=== PATIENT | male | born 1965 | race Caucasian/White ===

== ENCOUNTER 2017-08-20 01:15 | Emergency (ER) | payer MEDICAID ==
[~2017-08-20] VITALS: Ht 172.7 cm; Wt 99.7 kg
[2017-08-20] MEDS ORDERED: ALBUTEROL/IPRATROPIUM 2.5MG/0.5MG, 3 ML ONE (01:45)
[2017-08-20] MEDS ORDERED: ALBUTEROL/IPRATROPIUM 2.5MG/0.5MG, 3 ML NPPB ONE (02:00)
[2017-08-20 03:08] VITALS: BP 124/70
== END 2017-08-20 03:10 | disposition home or self-care (01) ==
LOC: ED 02:52
DX: S20.219A Contusion of unspecified front wall of thorax, initial encounter (principal); I10 Essential (primary) hypertension; X58.XXXA Exposure to other specified factors, initial encounter; Y93.89 Activity, other specified; Y92.89 Other specified places as the place of occurrence of the external cause; Y99.8 Other external cause status
CPT/HCPCS: 71046; 94640; 99284; J7620

== ENCOUNTER 2017-10-13 00:36 | Emergency (ER) | payer MEDICAID ==
[~2017-10-13] VITALS: Ht 172.7 cm; Wt 91.1 kg
[2017-10-13 00:38] VITALS: BP 156/104
[2017-10-13] MEDS ORDERED: IBUPROFEN 800 MG TABLET PO STA (01:11)
[2017-10-13] MEDS ORDERED: HYDROcodone/APAP 5/325 TABLET PO STA (01:11)
[2017-10-13] MEDS ORDERED: HYDROcodone/APAP 5/325 TABLET ONE (01:18)
[2017-10-13] MEDS ORDERED: IBUPROFEN 200 MG TABLET ONE (01:18)
== END 2017-10-13 02:27 | disposition home or self-care (01) ==
LOC: ED 02:00
DX: M54.42 Lumbago with sciatica, left side (principal); I10 Essential (primary) hypertension; F17.200 Nicotine dependence, unspecified, uncomplicated
CPT/HCPCS: 99284; J7512

== ENCOUNTER 2017-10-17 01:09 | Emergency (ER) | payer MEDICAID ==
[~2017-10-17] VITALS: Ht 175.3 cm; Wt 89.6 kg
[2017-10-17 01:11] VITALS: BP 126/90
== END 2017-10-17 03:10 | disposition home or self-care (01) ==
LOC: ED 03:04
DX: S39.012A Strain of muscle, fascia and tendon of lower back, initial encounter (principal); M54.42 Lumbago with sciatica, left side; M54.41 Lumbago with sciatica, right side; I10 Essential (primary) hypertension; X58.XXXA Exposure to other specified factors, initial encounter; Y93.89 Activity, other specified; Y92.89 Other specified places as the place of occurrence of the external cause; Y99.9 Unspecified external cause status
CPT/HCPCS: 72110; 99284

== ENCOUNTER 2017-12-22 11:21 | Emergency (ER) | payer MEDICAID ==
[~2017-12-22] VITALS: Ht 182.9 cm; Wt 95.5 kg
[2017-12-22 12:01] LABS: BASOPHILS # (AUTO) 0.02 x10^3/uL (0-0.1); BASOPHILS % (AUTO) 0 % (0-1); EOSINOPHILS # (AUTO) 0.13 x10^3/uL (0-0.4); EOSINOPHILS % (AUTO) 2 % (1-7); LYMPHOCYTES # (AUTO) 1.52 x10^3/uL (1-3.4); LYMPHOCYTES % (AUTO) 21 % (22-44); MD NO; MEAN CORPUSCULAR HEMOGLOBIN 30.6 pg (27.5-34.5); MEAN CORPUSCULAR HGB CONC 33.6 g/dL (33.2-36.2); MEAN CORPUSCULAR VOLUME 91.1 fL (81-97); MEAN PLATELET VOLUME 7.7 fL (7.4-10.4); MONOCYTES # (AUTO) 0.61 x10^3/uL (0.2-0.8); MONOCYTES % (AUTO) 8 % (2-9); NEUTROPHILS # (AUTO) 5.05 x10^3/uL (1.8-6.8); NEUTROPHILS % (AUTO) 69 % (42-75); PLATELET COUNT 240 x10^3/uL (130-400); RED BLOOD COUNT 4.62 x10^6/uL (4.38-5.82)
[2017-12-22 12:19] LABS: ALBUMIN 3.3 g/dL (3.4-5.0); ANION GAP 7 mmol/L (5-15); CALCIUM 8.7 mg/dL (8.5-10.1); CHLORIDE 107 mmol/L (98-107)
[2017-12-22 12:22] LABS: ALANINE AMINOTRANSFERASE 23 U/L (12-78); ALKALINE PHOSPHATASE 70 U/L (45-117); BILIRUBIN,TOTAL 0.5 mg/dL (0.2-1.0); CREATININE 0.81 mg/dL (0.7-1.3)
[2017-12-22 12:23] LABS: MICROSCOPIC AUTO
[2017-12-22 12:27] LABS: CULTURE INDICATED? NO
[2017-12-22 13:08] VITALS: BP 118/78
== END 2017-12-22 14:00 | disposition home or self-care (01) ==
LOC: ED 12:31
DX: R53.1 Weakness (principal); I10 Essential (primary) hypertension; J45.909 Unspecified asthma, uncomplicated
CPT/HCPCS: 36415; 70450; 71045; 80053; 81001; 83605; 85025; 93005; 99285

== ENCOUNTER 2018-07-28 14:24 | Inpatient (IN) | payer MEDICAID, OTHER ==
[~2018-07-28] VITALS: Ht 175.3 cm; Wt 81.6 kg
--- NOTE | 2018-07-28 14:42 | NUR ---
Pt to room from lobby.
[2018-07-28 14:53] LABS: BASOPHILS # (AUTO) 0.08 x10^3/uL (0-0.1); BASOPHILS % (AUTO) 1 % (0-1); EOSINOPHILS # (AUTO) 0.13 x10^3/uL (0-0.4); EOSINOPHILS % (AUTO) 1 % (1-7); LYMPHOCYTES # (AUTO) 1.39 x10^3/uL (1-3.4); LYMPHOCYTES % (AUTO) 12 % (22-44); MD NO; MEAN CORPUSCULAR HEMOGLOBIN 30.3 pg (27.5-34.5); MEAN CORPUSCULAR HGB CONC 33.8 g/dL (33.2-36.2); MEAN CORPUSCULAR VOLUME 89.7 fL (81-97); MEAN PLATELET VOLUME 7.4 fL (7.4-10.4); MONOCYTES # (AUTO) 0.72 x10^3/uL (0.2-0.8); MONOCYTES % (AUTO) 6 % (2-9); NEUTROPHILS % (AUTO) 80 % (42-75); PLATELET COUNT 364 x10^3/uL (130-400); RED BLOOD COUNT 4.22 x10^6/uL (4.38-5.82); RED CELL DISTRIBUTION WIDTH 13.1 % (9.4-14.8)
[2018-07-28] MEDS ORDERED: AMPICILLIN/SULBACTAM 3 GM in SODIUM CHLORIDE 0.9% 100 ML IV ONE (15:00)
[2018-07-28 15:05] LABS: ALBUMIN 2.3 g/dL (3.4-5.0); ANION GAP 0 mmol/L (5-15); CALCIUM 8.7 mg/dL (8.5-10.1); CHLORIDE 105 mmol/L (98-107); CREATININE 0.71 mg/dL (0.7-1.3)
--- NOTE | 2018-07-28 15:14 | NUR ---
Pt presents for swelling to R foot and leg x several days. Pt states he tripped af ew days ago and that is when he first noticed the swelling. CSM intact. No SOB.
[2018-07-28] MEDS ORDERED: ENALAPRILAT 1.25 MG/ML, 2ML IVPush PRN (15:30)
[2018-07-28] MEDS ORDERED: ACETAMINOPHEN 325 MG TABLET PO PRN (15:30)
[2018-07-28] MEDS ORDERED: BISACODYL 10 MG SUPP PR PRN (15:30)
[2018-07-28] MEDS ORDERED: DOCUSATE 100 MG CAPSULE PO PRN (15:30)
[2018-07-28] MEDS ORDERED: VANCOMYCIN PER PHARMACY MC PRN (15:30)
[2018-07-28] MEDS ORDERED: ONDANSETRON 2MG/ML, 2ML IVPush PRN (15:30)
[2018-07-28] MEDS ORDERED: KETOROLAC 30 MG/1 ML IV PRN (15:30)
[2018-07-28] MEDS ORDERED: POLYETHYLENE GLYCOL 17 GM PACKET PO PRN (15:30)
[2018-07-28] MEDS ORDERED: PHARMACOKINETIC MONITORING MC PRN (17:00)
[2018-07-28] MEDS ORDERED: PHARMACOKINETIC CONSULTATION MC ONE (17:00)
[2018-07-28 18:30] VITALS: BP 119/73
[2018-07-28] MEDS: ENOXAPARIN 40 MG/0.4 ML SQ SCH (18:37)
[2018-07-28] MEDS: VANCOMYCIN 1,700 MG in SODIUM CHLORIDE 0.9% 250 ML IV SCH (22:20)
[2018-07-28] MEDS: SODIUM CHLORIDE FLUSH 10ML SYR IVF SCH (22:21)
[2018-07-29] MEDS: AMPICILLIN/SULBACTAM 3 GM in SODIUM CHLORIDE 0.9% 100 ML IV SCH ×4 (00:20→20:40)
[2018-07-29 01:00] VITALS: BP 112/72
[2018-07-29 05:00] LABS: BASOPHILS # (AUTO) 0.03 x10^3/uL (0-0.1); BASOPHILS % (AUTO) 0 % (0-1); EOSINOPHILS # (AUTO) 0.27 x10^3/uL (0-0.4); EOSINOPHILS % (AUTO) 3 % (1-7); LYMPHOCYTES # (AUTO) 1.36 x10^3/uL (1-3.4); LYMPHOCYTES % (AUTO) 13 % (22-44); MD NO; MEAN CORPUSCULAR HEMOGLOBIN 30.4 pg (27.5-34.5); MEAN CORPUSCULAR HGB CONC 33.7 g/dL (33.2-36.2); MEAN CORPUSCULAR VOLUME 90.1 fL (81-97); MEAN PLATELET VOLUME 7.4 fL (7.4-10.4); MONOCYTES # (AUTO) 0.76 x10^3/uL (0.2-0.8); MONOCYTES % (AUTO) 7 % (2-9); NEUTROPHILS # (AUTO) 8.29 x10^3/uL (1.8-6.8); NEUTROPHILS % (AUTO) 77 % (42-75); PLATELET COUNT 361 x10^3/uL (130-400); RED BLOOD COUNT 4.14 x10^6/uL (4.38-5.82); RED CELL DISTRIBUTION WIDTH 13.1 % (9.4-14.8)
[2018-07-29 05:13] LABS: ANION GAP 3 mmol/L (5-15); CHLORIDE 104 mmol/L (98-107); CREATININE 0.77 mg/dL (0.7-1.3)
[2018-07-29 06:32] VITALS: BP 112/70
[2018-07-29] MEDS: SODIUM CHLORIDE FLUSH 10ML SYR IVF SCH ×2 (09:00→21:00)
[2018-07-29] MEDS: VANCOMYCIN 1,700 MG in SODIUM CHLORIDE 0.9% 250 ML IV SCH ×2 (10:45→22:06)
[2018-07-29 12:07] VITALS: BP 120/78
[2018-07-29] MEDS: ENOXAPARIN 40 MG/0.4 ML SQ SCH (18:20)
[2018-07-29 19:09] VITALS: BP 120/74
[2018-07-30 02:12] VITALS: BP 129/84
[2018-07-30] MEDS: AMPICILLIN/SULBACTAM 3 GM in SODIUM CHLORIDE 0.9% 100 ML IV SCH ×4 (03:10→20:26)
[2018-07-30 05:43] LABS: BASOPHILS # (AUTO) 0.09 x10^3/uL (0-0.1); BASOPHILS % (AUTO) 1 % (0-1); EOSINOPHILS # (AUTO) 0.12 x10^3/uL (0-0.4); EOSINOPHILS % (AUTO) 1 % (1-7); LYMPHOCYTES # (AUTO) 1.42 x10^3/uL (1-3.4); LYMPHOCYTES % (AUTO) 13 % (22-44); MD NO; MEAN CORPUSCULAR HEMOGLOBIN 30.2 pg (27.5-34.5); MEAN CORPUSCULAR HGB CONC 33.7 g/dL (33.2-36.2); MEAN CORPUSCULAR VOLUME 89.8 fL (81-97); MEAN PLATELET VOLUME 7.2 fL (7.4-10.4); MONOCYTES # (AUTO) 0.67 x10^3/uL (0.2-0.8); MONOCYTES % (AUTO) 6 % (2-9); NEUTROPHILS % (AUTO) 78 % (42-75); PLATELET COUNT 390 x10^3/uL (130-400); RED BLOOD COUNT 4.51 x10^6/uL (4.38-5.82); RED CELL DISTRIBUTION WIDTH 13.5 % (9.4-14.8)
[2018-07-30 05:50] LABS: ALBUMIN 2.1 g/dL (3.4-5.0); ANION GAP 3 mmol/L (5-15); CALCIUM 8.9 mg/dL (8.5-10.1); CHLORIDE 104 mmol/L (98-107); CREATININE 0.71 mg/dL (0.7-1.3)
[2018-07-30 06:27] VITALS: BP 124/83
[2018-07-30] MEDS: SODIUM CHLORIDE FLUSH 10ML SYR IVF SCH ×2 (09:00→20:26)
[2018-07-30] MEDS: VANCOMYCIN 1,700 MG in SODIUM CHLORIDE 0.9% 250 ML IV SCH (10:33)
[2018-07-30 12:41] VITALS: BP 128/81
[2018-07-30] MEDS: LACTOBACILLUS CHEW TABLET PO SCH ×2 (15:48→20:26)
[2018-07-30] MEDS: ENOXAPARIN 40 MG/0.4 ML SQ SCH (17:54)
[2018-07-30 20:04] VITALS: BP 112/76
[2018-07-31 01:35] VITALS: BP 114/76
[2018-07-31] MEDS: AMPICILLIN/SULBACTAM 3 GM in SODIUM CHLORIDE 0.9% 100 ML IV SCH ×4 (03:03→21:38)
[2018-07-31] MEDS: VANCOMYCIN 1,500 MG in SODIUM CHLORIDE 0.9% 250 ML IV SCH ×2 (04:19→17:44)
[2018-07-31 05:21] LABS: BASOPHILS # (AUTO) 0.07 x10^3/uL (0-0.1); BASOPHILS % (AUTO) 1 % (0-1); EOSINOPHILS # (AUTO) 0.16 x10^3/uL (0-0.4); EOSINOPHILS % (AUTO) 2 % (1-7); LYMPHOCYTES # (AUTO) 1.37 x10^3/uL (1-3.4); LYMPHOCYTES % (AUTO) 13 % (22-44); MD NO; MEAN CORPUSCULAR HEMOGLOBIN 30.3 pg (27.5-34.5); MEAN CORPUSCULAR HGB CONC 33.8 g/dL (33.2-36.2); MEAN CORPUSCULAR VOLUME 89.5 fL (81-97); MEAN PLATELET VOLUME 7.2 fL (7.4-10.4); MONOCYTES # (AUTO) 0.61 x10^3/uL (0.2-0.8); MONOCYTES % (AUTO) 6 % (2-9); NEUTROPHILS # (AUTO) 8.56 x10^3/uL (1.8-6.8); NEUTROPHILS % (AUTO) 80 % (42-75); PLATELET COUNT 443 x10^3/uL (130-400); RED BLOOD COUNT 4.62 x10^6/uL (4.38-5.82); RED CELL DISTRIBUTION WIDTH 13.2 % (9.4-14.8)
[2018-07-31 05:26] LABS: CHLORIDE 102 mmol/L (98-107)
[2018-07-31 05:34] LABS: ALBUMIN 2.2 g/dL (3.4-5.0); ANION GAP 7 mmol/L (5-15); CALCIUM 8.8 mg/dL (8.5-10.1); CREATININE 0.75 mg/dL (0.7-1.3)
[2018-07-31 06:50] VITALS: BP 122/78
[2018-07-31] MEDS: SODIUM CHLORIDE FLUSH 10ML SYR IVF SCH ×2 (09:00→21:37)
[2018-07-31] MEDS: LACTOBACILLUS CHEW TABLET PO SCH ×3 (09:21→21:36)
[2018-07-31 12:14] VITALS: BP 117/80
[2018-07-31] MEDS: ENOXAPARIN 40 MG/0.4 ML SQ SCH (17:45)
[2018-07-31 20:32] VITALS: BP 122/78
[2018-08-01] MEDS: AMPICILLIN/SULBACTAM 3 GM in SODIUM CHLORIDE 0.9% 100 ML IV SCH ×2 (02:49→08:51)
[2018-08-01 03:09] VITALS: BP 143/78
[2018-08-01] MEDS: VANCOMYCIN 1,500 MG in SODIUM CHLORIDE 0.9% 250 ML IV SCH (03:56)
[2018-08-01 05:23] LABS: BASOPHILS # (AUTO) 0.03 x10^3/uL (0-0.1); BASOPHILS % (AUTO) 0 % (0-1); EOSINOPHILS # (AUTO) 0.27 x10^3/uL (0-0.4); EOSINOPHILS % (AUTO) 3 % (1-7); LYMPHOCYTES # (AUTO) 1.43 x10^3/uL (1-3.4); LYMPHOCYTES % (AUTO) 16 % (22-44); MD NO; MEAN CORPUSCULAR HEMOGLOBIN 30.2 pg (27.5-34.5); MEAN CORPUSCULAR HGB CONC 33.5 g/dL (33.2-36.2); MEAN CORPUSCULAR VOLUME 90.3 fL (81-97); MEAN PLATELET VOLUME 7.1 fL (7.4-10.4); MONOCYTES # (AUTO) 0.52 x10^3/uL (0.2-0.8); MONOCYTES % (AUTO) 6 % (2-9); NEUTROPHILS # (AUTO) 6.88 x10^3/uL (1.8-6.8); NEUTROPHILS % (AUTO) 75 % (42-75); PLATELET COUNT 427 x10^3/uL (130-400); RED BLOOD COUNT 4.72 x10^6/uL (4.38-5.82); RED CELL DISTRIBUTION WIDTH 12.8 % (9.4-14.8)
[2018-08-01 05:34] LABS: ALBUMIN 2.2 g/dL (3.4-5.0); ANION GAP 8 mmol/L (5-15); CALCIUM 8.7 mg/dL (8.5-10.1); CHLORIDE 103 mmol/L (98-107)
[2018-08-01 05:38] LABS: CREATININE 0.75 mg/dL (0.7-1.3)
[2018-08-01 07:14] VITALS: BP 124/82
[2018-08-01] MEDS: SODIUM CHLORIDE FLUSH 10ML SYR IVF SCH (08:50)
[2018-08-01] MEDS: LACTOBACILLUS CHEW TABLET PO SCH (08:51)
[2018-08-01] MEDS ORDERED: DOXY100T10 PO (10:53)
[2018-08-01] MEDS ORDERED: AMOX1TAB64 PO (10:53)
[2018-08-01] MEDS ORDERED: ACID1TAB7 PO (10:53)
== END 2018-08-01 12:38 | disposition home or self-care (01) | DRG 603 ==
LOC: ED 15:02 → EDIP 15:03 → ED 15:04 → 4NOR 16:23 → 3NE 16:57 → DCLOUNGE 08-01 12:30
PROVIDERS: ADMIT Hospitalist; ATTEND Hospitalist
DX: L03.115 Cellulitis of right lower limb (principal); E44.0 Moderate protein-calorie malnutrition; E87.1 Hypo-osmolality and hyponatremia; I10 Essential (primary) hypertension; F17.210 Nicotine dependence, cigarettes, uncomplicated; D64.9 Anemia, unspecified; J45.909 Unspecified asthma, uncomplicated; Z82.49 Family history of ischemic heart disease and other diseases of the circulatory system; Z83.3 Family history of diabetes mellitus; Z80.9 Family history of malignant neoplasm, unspecified; Z68.26 Body mass index [BMI] 26.0-26.9, adult; Z23 Encounter for immunization
CPT/HCPCS: 36415; 71046; 80048; 80202; 82040; 83605; 83880; 85025; 87040; 90656; 96365; 96366; 96372; 96375; G0378; J0295; J1650; J3370; J7050